=== PATIENT | male | born 1960 | race Caucasian/White ===

== ENCOUNTER 2022-02-11 17:03 | Outpatient (CLI) | payer OTHER, SELFPAY ==
[2022-02-11 14:33] LABS: Chloride* 105 mmol/L (96-114); Sodium* 138 mmol/L (135-149)
[2022-02-11 14:34] LABS: Potassium* 4.5 mmol/L (3.6-5.1)
[2022-02-11 14:36] LABS: Carbon Dioxide* 22 mmol/L (20-32); Cholesterol* 207 mg/dL (90-199); Creatinine* 0.7 mg/dL (0.5-1.5); Estimated Glomerular Filt Rate 106 ml/min
[2022-02-11 14:37] LABS: Blood Urea Nitrogen* 19 mg/dL (7-30); Calcium* 9.5 mg/dL (8.4-10.6); Glucose* 155 mg/dL (60-115); HDL Cholesterol* 38 mg/dL (>=40); LDL Cholesterol Calculated 112 mg/dL (<100); Triglycerides* 286 mg/dL (40-149)
[2022-02-11 14:49] LABS: Creatinine Urine 92.2 mg/dL
[2022-02-11 14:53] LABS: Microalbumin Creatinine Ratio 20 mg/g (0-30); Microalbumin Urine 2 mg/dL
[2022-02-11 15:06] LABS: PSA Screen* 0.61 ng/mL (0.10-4.00)
== END 2022-02-11 17:04 | disposition home or self-care (01) ==
PROVIDERS: PCP Family Medicine; Visit Provider Family Medicine
DX: Z00.00 Encounter for general adult medical examination without abnormal findings (principal); E11.9 Type 2 diabetes mellitus without complications; E78.00 Pure hypercholesterolemia, unspecified; I10 Essential (primary) hypertension; Z12.5 Encounter for screening for malignant neoplasm of prostate
CPT/HCPCS: 80048; 80061; 82043; 82570; 84153

== ENCOUNTER 2023-05-17 08:20 | Outpatient (CLI) | payer OTHER, SELFPAY ==
--- OUTSIDE RECORDS SUMMARY | 2023-05-24 12:55 | XMS_ITS | Encounter Summary ---
Author Name Department of Vetera Affairs Organization [facility] of [facility] Address [address] [place] [id number] Support Name Relationship Address Phone GALLO RONQUILLO Next of Kin [address] [place] [address] GALLO RONQUILLO Emergency Contact [address] [place] [id number] Insurance Providers: All historical and current Section Date Range: From patient's date of to the date document was created. This section includes the names of all active insurance providers for the patient. Insurance Provider Type of Coverage Plan Name Start of Policy Coverage End of Policy Coverage Group Number Member ID Insurance Provider's Telephone Number Policy Mancera's Name Patient's Relationship to Policy Mancera [facility] (WNR) MEDICAID MEDIC AID Apr 14, 2007 [id number] [phone] [facility] PATIENT Selected Encounter This section includes the information on record at [place] for the Encounter. Date/Time Encounter Type Encounter Description Reason Provider Source Dec 23, 2022 09:45 AM HEARING AID FITTING/CHECKIN G AUDIOLOGY ICD-10-CM Z46.1 Encounter for fitting and adjustment of hearing aid BJ PERALTA Rocio Encounter Template Text not used by [place] Assessments - Encounter Diagnoses This section includes the primary and secondary diagnoses documented for the Encounter. Date/Time Primary/Secondary Diagnosis Diagnosis Name Provider Source Dec 23, 2022 10:30 AM PRIMARY Encounter for fitting and adjustment of hearing aid TEA PERALTA [facility] Dec 23, 2022 10:30 AM SECONDARY Sensorineural hearing loss, bilateral TEA PERALTA [facility] Encounter Notes: All associated encounter notes This section contains the clinical notes associated to the Encounter. Date/Time Encounter Note(s) Provider Source Dec 23, 2022 10:25 AM AUDIOLOGY NOTE: LOCAL TITLE: AUDIOLOGY CLINIC NOTE STANDARD TITLE: AUDIOLOGY NOTE DATE OF NOTE: DEC 23, 2022@10:25 ENTRY DATE: DEC 23, 2022@10:25:50 AUTHOR: BJ PERALTA EXP COSIGNER: URGENCY: STATUS: COMPLETED DIAGNOSIS: Sensorineural Hearing Loss Reason for visit: Encounter for fitting adjustment Otoscopy: Free of excessive cerumen, normal anatomy bilaterally. Cerumen removal by . advised to use mineral oil until cerumen can be removed. History: Patient seen for a hearing aid service/hearing aid check. Hearing Aids (right/left): SONOVA PHONAK AUDEO L90-RL LULU L [id number] SONOVA PHONAK AUDEO L90-RL LULU R [id number] The following hearing aid problem/s were presented: RIGHT HEARING AID - clean & check, s's have a whistling sound LEFT HEARING AID - clean check, s's have a whistling sound Action: Hearing aids were cleaned and checked. Listening check revealed good sound quality Both aids functioning properly post clean & check The following parts were replaced: wax guards Adjusted the SoundRecover2 Audibility/Distinction and Clarity/Comfort Patient stated that the adjustments today addressed the s's issue. was counseled on the cleaning, care and use of hearing aids. Plan: Follow up as medically indicated or if a change in hearing is noted. Return to Clinic for servicing of amplification as needed. Return to clinic for hearing aid evaluation/services. Return to clinic for fitting of devices. Patient is in agreement with this plan. /cheng/ BJ PERALTA [facility] SPECIAL[facility] Signed: 12/23/2022 10:[address] [facility]
--- OUTSIDE RECORDS SUMMARY | 2023-05-24 12:55 | XMS_ITS | Encounter Summary ---
Author Name Department of Vetera Affairs Organization Department of Vetera Affairs Address [address] [place] [address] Support Name Relationship Address Phone GALLO RONQUILLO Next of Kin [address] [place] [address] GALLO RONQUILLO Emergency Contact [address] [place] [address] Insurance Providers: All historical and current Section Date Range: From patient's date of to the date document was created. This section includes the names of all active insurance providers for the patient. Insurance Provider Type of Coverage Plan Name Start of Policy Coverage End of Policy Coverage Group Number Member ID Insurance Provider's Telephone Number Policy Mancera's Name Patient's Relationship to Policy Mancera [facility] (WNR) MEDICAID MEDIC AID Apr 14, 2007 [id number] [phone] [facility] ED PATIENT Selected Encounter This section includes the information on record at [place] for the Encounter. Date/Time Encounter Type Encounter Description Reason Provider Source Jul 29, 2022 07:45 AM HEARING AID EXAM BOTH EARS AUDIOLOGY ICD-10-CM Z01.118 Encntr for exam of ears and hearing w oth abnormal findings MARLENI ENGLAND E Encounter Template Text not used by [place] Assessments - Encounter Diagnoses This section includes the primary and secondary diagnoses documented for the Encounter. Date/Time Primary/Secondary Diagnosis Diagnosis Name Provider Source Jul 29, 2022 09:13 AM PRIMARY Encntr for exam of ears and hearing w oth abnormal findings [facility] Jul 29, 2022 09:13 AM SECONDARY Sensorineural hearing loss, bilateral [facility] Jul 29, 2022 09:13 AM SECONDARY Tinnitus, bilateral [facility] Plan of Treatment: Future Appointments (+ 6 months) and Future Tests (+/- 45 days) The Plan of Treatment section includes future care activities for the patient from all [place] [facility]. This section includes future appointments and future orders which are active, pending or scheduled. Future Appointments This section includes appointments that were scheduled to occur 6 months from the date of the Encounter, up to a maximum of 20 appointments. The data comes from all [facility] facilities. Appointment Date/Time Appointment Type Appointme nt Facility Name September 12, 2022 08:45 AM AMBULATORY - SURGERY [facility] Nov 04, 2022 08:45 AM AMBULATORY - SURGERY [facility] Dec 23, 2022 09:45 AM AMBULATORY SURGERY [facility] Encounter Notes: All associated encounter notes This section contains the clinical notes associated to the Encounter. Date/Time Encounter Note(s) Provider Source Jul 29, 2022 07:34 AM AUDIOLOGY NOTE: LOCAL TITLE: AUDIOLOGY CLINIC NOTE STANDARD TITLE: AUDIOLOGY NOTE DATE OF NOTE: JUL 29, 2022@07:34 ENTRY DATE: JUL 29, 2022@07:34:15 AUTHOR: ISAIAH ENGLAND COSIGNER: URGENCY: STATUS: COMPLETED DIAGNOSIS: Encounter for examination of ears and hearing Sensorineural loss - bilateral Tinnitus - bilateral REASON FOR VISIT: HEARING EVALUATION AND HEARING AID SELECTION, 60 MINUTES: was seen in the clinic today for a comprehensive audiologic evaluation, hearing aid selection, and counseling utilizing a standard curriculum (30 minutes). LOCATION OF VISIT (ROOM NUMBER): 116 Personal Protective Equipment (PPE): Patient was in mask on arrival, patient remained masked for entire visit, Tower Dragline Operator used PPE during every encounter with the patient. The is new to this clinic. The is NOT Service Connected for Hearing Loss / Tinnitus. was unaccompanied. The has never worn hearing aids before. HISTORY: Chilo's history of noise exposure: The served in the [employer] from 1982 - 2008. He served in the [employer] the first 10 years, then for the remainder of the time he worked in the [employer]. 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 Chilo feels that he had equal exposure between ears; he shoots off of his right shoulder. He reports he did wear hearing protection. CIVILIAN NOISE HISTORY: There is a history of Recreational or Occupational noise exposure from: [ ] No [ X ] Yes: Construction noise, did not always wear hearing protection. He also hunts. 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 HEALTH HISTORY: Concerns reported today by Patient: [ X ] Hearing Loss, Both Ears: Gradual over the past year. He first started noticing the hearing loss at time of discharge from the in his late 30s. [ X ] Tinnitus, mostly Right Ear. Intermittent, pretty rare. It is not overly bothersome. Onset many years ago. [ X ] Family History of Hearing loss - Parents, Siblings Pt Denies: - Vertigo/Dizziness/Imbalan ce - Otorrhea - Otalgia - Aural Fullness - Head Trauma - Otosurgery Denies any significant otologic history. Veterans Reported Hearing Concerns: [ ] One-on-One Conversations [ X ] Lecture Index/Auditorium/Restorationist [ X ] Restaurants/Background Noise [ X ] Radio/Television [ X ] Group Situations [ ] Phone - uses the right ear. He uses an Vocation cell phone. [ X ] Family/Wifes voice [ X ] Workplace/Meetings [ ] Car/Driving PROCEDURES: OTOSCOPY: Bilaterally: Free of excessive cerumen. Normal appearing TM's and canals. TYMPANOMETRY: RIGHT EAR: Type A Pressure: Normal Compliance: Normal Volume: Normal LEFT EAR: Type A Pressure: Normal Compliance: Normal Volume: Normal IMMITTANCE: RIGHT EAR: 500Hz 1000Hz 2000Hz 4000Hz Ipsilateral: NR NR NR NR Contralateral: NR NR NR NR LEFT EAR: 500Hz 1000Hz 2000Hz 4000Hz Ipsilateral: 90 85 100 95 Contralateral: NR NR 100 NR ACOUSTIC REFLEX DECAY: could not obtain due to exceeding the maximum safe level of 100 dBHL and/or absent contralateral reflexes bilaterally AUDIOMETRICS: Air conduction, bone conduction and speech testing were completed bilaterally. Transducer: Supra-aural headphones Reliability: Good RIGHT EAR (Hz) 250 627 226 1402 1500 2000 3000 4000 6000 8000 Air: 25 35 30 20 45 45 55 70 100 Bone: 35* 10 25 40 55 LEFT EAR (Hz) 250 276 176 3915 1500 2000 3000 4000 6000 8000 Air: 20 30 30 20 25 45 50 65 75 Bone: 20 10 25 40 55 See Audiogram Display under Tools ?? AUDIOLOGY ?? ROES or see [facility] Database - All thresholds are in dB HL * = Masked Threshold SRT: Spondees Right: 30 dB HL Left: 25 dB HL Pure tone results were consistent with speech bookkeeper receptionist thresholds. WORD RECOGNITION: / - word list RIGHT EAR: 96% Level: 75* dB LEFT EAR: 92% Level: 75* dB SUMMARY: RIGHT EAR: Borderline normal through 2000 Hz, with sensorineural notch 500 - 750 Hz, sloping to profound sensorineural hearing loss with normal word recognition ability (96%). Tympanogram was within normal limits, consistent with normal middle ear function. LEFT EAR: Borderline normal through 2000 Hz, with sensorineural notch 500 - 750 Hz, sloping to severe sensorineural hearing loss with normal word recognition ability (92%). Tympanogram was within normal limits, consistent with normal middle ear function. AMPLIFICATION: - Chilo is a good candidate for hearing aid use. - was counseled on his type, degree and configuration of hearing loss using a standard curriculum. - The 's hearing loss has progressed currently to the extent that it affects full participation in the provision of health care as noted today in our discussions. Hearing aids are medically indicated to treat the 's auditory conditions. - Different styles/technologies were reviewed with consideration given to veterans listening situations and lifestyle needs. He reports that he often travels and does tend to sweat a lot. He would like rechargable RICs. - The has good vision, memory, and dexterity for hearing aid use. Counseling (30 minutes) - Chilo counseled using a standard curriculum on realistic expectations associated with adjusting to hearing aids, use of the devices, VA procedures and trial period. - counseled using a standard curriculum on effective communication strategies such as maintaining face to face contact when speaking, eliminating background noise when possible, and talking at a close distance. - counseled using a standard curriculum on hearing protection in noise. - Chilo has a [employer] smartphone and is interested in the bluetooth connectivity features of the hearing aid. HEARING AIDS ORDERED: - PHONAK WattageEO L90-LR LULU hearing aids (champagne, Size 2M receivers, mediume vented domes) were selected and ordered today. - Accessories ordered: none ( has [employer] smartphone) PLAN: 1. will be scheduled for a 60-minute hearing aid fitting appointment. 2. Regular follow-up recommended to monitor for changes in hearing, or as medically indicated. IS IN AGREEMENT WITH THIS PLAN Suicide Screen: C-SSRS Screening [place]-Suicide Severity Rating Scale (C-SSRS Screener) 1. Over the past month, have you wished you were or wished you could go to sleep and not wake up? No 2. Over the past month, have you had any actual thoughts of killing yourself? No 3. Over the past month, have you been thinking about how you might do this? Response not required due to responses to other questions. 4. Over the past month, have you had these thoughts and had some intention of acting on them? Response not required due to responses to other questions. 5. Over the past month, have you started to work out or worked out the details of how to kill yourself? Response not required due to responses to other questions. 6. If yes, at any time in the past month did you intend to carry out this plan? Response not required due to responses to other questions. 7. In your lifetime, have you ever done anything, started to do anything, or prepared to do anything to end your life (for example, collected pills, obtained a gun, gave away valuables, went to the roof but didn't jump)? No 8. If YES, was this within the past 3 months? Response not required due to responses to other questions. /cheng/ Sumanth VELA, CCC-A MAIL DELIVERER Signed: 07/29/2022 09:13 [facility]
--- OUTSIDE RECORDS SUMMARY | 2023-05-24 12:55 | XMS_ITS | Encounter Summary ---
Author Name [facility] Organization [facility] Address [address] [place] [address] Support Name Relationship Address Phone GALLO RONQUILLO Next of Kin [address] [place] [address] GALLO RONQUILLO Emergency Contact [address] [...] Mancera's Name Patient's Relationship to Policy Mancera [facility] (WNR) MEDICAID MEDIC AID Apr 14, 2007 [id number] [phone] [facility] ED PATIENT Selected Encounter This section includes the information on record at [place] for the Encounter. Date/Time Encounter Type Encounter Description Reason Provider Source September 12, 2022 08:45 AM CONFORMITY EVALUATION AUDIOLOGY ICD-10-CM Z46.1 Encounter for fitting and adjustment of hearing aid MARLENI ENGLAND [facility] Encounter Template Text not used by [place] Assessments - Encounter Diagnoses This section includes the primary and secondary diagnoses documented for the Encounter. Date/Time Primary/Secondary Diagnosis Diagnosis Name Provider Source September 12, 2022 10:24 AM PRIMARY Encounter for fitting and adjustment of hearing aid [facility] September 12, 2022 10:24 AM SECONDARY Sensorineural hearing loss, bilateral [facility] September 12, 2022 10:24 AM SECONDARY Tinnitus, bilateral [facility] Plan of Treatment: Future Appointments (+ 6 months) and Future Tests (+/- 45 days) The Plan of Treatment section includes future care activities for the patient from all [place] [facility]. This section includes future appointments and future orders which are active, pending or scheduled. Future Appointments This section includes appointments that were scheduled to occur 6 months from the date of the Encounter, up to a maximum of 20 appointments. The data comes from all [facility]. Appointment Date/Time Appointment Type Appointme nt Facility Name Nov 04, 2022 08:45 AM AMBULATORY - SURGERY [facility] Dec 23, 2022 09:45 AM AMBULATORY - SURGERY [facility] Encounter Notes: All associated encounter notes This section contains the clinical notes associated to the Encounter. Date/Time Encounter Note(s) Provider Source September 12, 2022 07:42 AM AUDIOLOGY NOTE: LOCAL TITLE: AUDIOLOGY CLINIC NOTE STANDARD TITLE: AUDIOLOGY NOTE DATE OF NOTE: SEPTEMBER 12, 2022@07:42 ENTRY DATE: SEPTEMBER 12, 2022@07:42:48 AUTHOR: ISAIAH ENGLAND COSIGNER: URGENCY: STATUS: COMPLETED DIAGNOSIS: Encounter for Fitting and Adjustment of Hearing Aid Sensorineural loss - bilateral Tinnitus - bilateral REASON FOR VISIT: was seen for Hearing Aid [place] Appointment. Therapeutic - hearing aid fitting, conformity evaluation (real-ear measures), orientation and counseling using a standard curriculum (30 minutes). LOCATION OF VISIT (ROOM NUMBER): 118 Kitt[place]ge was unaccompanied. Personal Protective Equipment (PPE): Patient was in mask on arrival, patient remained masked for entire visit, Machine Stone Polisher Apprentice used PPE during every encounter with the patient. OTOSCOPY: Both Ears: Free of excessive cerumen. Normal anatomy bilaterally HISTORY: Kittredge denies changes in hearing or new otologic symptoms since their last visit to the clinic. has never used hearing aids previously. HEARING AIDS (Right/Left) fit (date): 09/12/2022 BINAURAL: PHONAK AUDEO L90-RL (#[id number]) Receivers: 2M Dome: Medium Vented and/or Medium Open ACCESSORIES: none ACTION + CONFORMITY EVAUATION (VERIFICATION OF HEARING AID FUNCTION): Hearing aids are a good physical fit to pt's ears. Feedback test was completed and feedback carbon capture power plant manager was activated. No feedback was noted from either aid, even with head/jaw movement or with objects near the ears. Hearing aids were programmed to NAL-NL2 prescriptive targets with the AudioScan Verifit, which were derived from the Veterans hearing loss. However, felt the sound quality was overall too loud. Decreased gain to 90% of the target, and then decreased gain further by turning the occlusion Scientific Research Associate to Medium. still was experiencing bothersome occlusion which improved when replaced the vented domes with open domes. According to the NAL-NL2 fitting method, the patient's hearing aids are below target for soft, average, and loud speech. Loudness tolerance was measured using a 90 dB MPO tone sweep and the patient was able to tolerate the output of the hearing devices. Veterans subjective impressions were considered while adjusting the hearing aids. reported good sound quality and equal balance between ears after adjustments were made. Kittredge reported a comfortable fit. Kittredge demonstrated understanding of the new aids and was able to insert the hearing aids appropriately, as well as manipulate the battery charging unit. Volume control enabled - Synchronized Program button enabled Programs are as follows: 1. Automatic Kitt[place] was provided with both vented and open domes to try. [employer] cell phone was paired to the hearing aids. A practice phone call was completed to verify functionality. Education and counseling was completed regarding streaming capabilities. The wire basket maker phone application was reviewed in detail (volume control, program changes, settings, etc.) and demonstrated in the office. Provided pt with the wire basket maker technical support phone number. was counseled using a standard curriculum (30 minutes) regarding: - Full-time hearing aid use and acclimating to amplification - Realistic expectations for hearing aid use - Appropriate communication strategies - How to charge the hearing aids - Location and operation of all controls - Proper care and maintenance - Protecting hearing in high noise levels - [facility] and Call Center contact information and services, including the trial period. Kittredge was counseled on the following: -Full-time hearing aid use and acclimating to amplification -Realistic expectations for hearing aid use -Appropriate communication strategies -Battery insertion and removal -Location and operation of all controls -Proper care and maintenance -Protecting hearing in high noise levels -[facility] and Call Center contact information and services, including the trial period and Quick Clinic hours Prognosis for success is good, given the Veterans response to the hearing aids. Hearing aids were issued and batteries and supplies were mailed. was provided with a copy of [place] issuance form [id number]. PLAN: 1) Kittredge will return to clinic in 1 month for follow-up to his amplification needs. He will hopefully be ready for additional gain at that time. CATA IS IN AGREEMENT WITH THIS PLAN /cheng/ Sumanth VELA, SHANA-A FAMILY INDEPENDENCE CASE MANAGER Signed: 09/12/2022 10:32 ISAIAH ENGLAND [facility]
--- OUTSIDE RECORDS SUMMARY | 2023-05-24 12:55 | XMS_ITS | Continuity of Care Document ---
Author Name [facility] Organization [facility] Care Team Providers Care Axle Inspector Name Role Phone [facility] Unavailable Unavailable Problems Combined list of problems from Department of Defense and Veterans Affairs facilities. It does not include entries that were removed or entered in error. Problem Status Onset Date Problem Type Date of Resolution Comments Source Diagnosis: ICD-10-CM Z46.1 Encounter for fitting and adjustment of hearing aid Active Diagnosis [facility] Diagnosis: ICD-10-CM Z01.118 Encntr for exam of ears and hearing w oth abnormal findings Active Diagnosis [facility] Encounters Combined list of: 1) Encounters from Department of Veterans Affairs facilities going back up to thelast 18 months. 2) Encounters from the Department of Defense facilities going back up to 280 months. Location Location Details Encounter Type Encounter Number Reason For Visit Attending Provider ADM Date DC Date Status Disposition Source [facility] HEARING AID EXAM BOTH EARS [id number] Diagnos is: ICD-10- CM Z01.118 Encntr for exam of ears and hearing w oth abnorma l finding s
MARIA GUADALUPE ENGLAND 07/29 [facility] CONFORMITY EVALUATION [id number] Diagnos is: ICD-10- CM Z46.1 Encount er for fitting and adjustm ent of hearing aid<br/ > MARIA GUADALUPE ENGLAND 09/12 [facility] [place] [facility] HEARING AID FITTING/CH ECKING [id number] [id number] Diagnos is: ICD-10- CM Z46.1 Encount er for fitting and adjustm ent of hearing aid<br/ > LYNN PERALTA 11/04 [facility] [place] [facility] HEARING AID FITTING/CH ECKING [id number] [id number] Diagnos is: ICD-10- CM Z46.1 Encount er for fitting and adjustm ent of hearing aid<br/ > [facility]YNN PER[facility]TA 12[facility]23 [facility] Social History Combined list of available smoking, tobacco, and other social history from Department of Defense and Veterans Affairs facilities. Social History Type Response Date Comment [facility] e This section is an empty social history section. [employer]
--- OUTSIDE RECORDS SUMMARY | 2023-05-24 12:55 | XMS_ITS | Encounter Summary ---
Author Name [facility] Organization [facility] Address [address] [place] [address] Support Name Relationship Address Phone GALLO RONQUILLO Next of Kin [address] [place] [address] GALLO RONQUILLO Emergency Contact [phone] Mancera's Name Patient's Relationship to Policy Mancera [facility] (WNR) MEDICAID MEDIC AID Apr 14, 2007 [id number] [phone] [facility] ED PATIENT Selected Encounter This section includes the information on record at [place] for the Encounter. Date/Time Encounter Type Encounter Description Reason Provider Source Nov 04, 2022 08:45 AM HEARING AID FITTING/CHECKIN G AUDIOLOGY ICD-10-CM Z46.1 Encounter for fitting and adjustment of hearing aid BJ PERALTA Rocio Encounter Template Text not used by [place] Assessments - Encounter Diagnoses This section includes the primary and secondary diagnoses documented for the Encounter. Date/Time Primary/Secondary Diagnosis Diagnosis Name Provider Source Nov 04, 2022 09:50 AM PRIMARY Encounter for fitting and adjustment of hearing aid TEA PERALTA [facility] Nov 04, 2022 09:50 AM SECONDARY Sensorineural hearing loss, bilateral TEA PERALTA [facility] Plan of Treatment: Future Appointments (+ 6 months) and Future Tests (+/- 45 days) The Plan of Treatment section includes future care activities for the patient from all [place] treatmentfacilities. This section includes future appointments and future orders which are active, pending or scheduled. Future Appointments This section includes appointments that were scheduled to occur 6 months from the date of the Encounter, up to a maximum of 20 appointments. The data comes from all [place] treatment facilities. Appointment Date/Time Appointment Type Appointme nt Facility Name Dec 23, 2022 09:45 AM AMBULATORY - SURGERY [facility] Encounter Notes: All associated encounter notes This section contains the clinical notes associated to the Encounter. Date/Time Encounter Note(s) Provider Source Nov 04, 2022 09:25 AM AUDIOLOGY NOTE: LOCAL TITLE: AUDIOLOGY CLINIC NOTE STANDARD TITLE: AUDIOLOGY NOTE DATE OF NOTE: NOV 04, 2022@09:25 ENTRY DATE: NOV 04, 2022@09:25:25 AUTHOR: BJ PERALTA EXP COSIGNER: URGENCY: STATUS: COMPLETED DIAGNOSIS: Sensorineural Hearing Loss Reason for visit: Encounter for fitting adjustment Otoscopy: Free of excessive cerumen, normal anatomy bilaterally. History: Patient seen for a hearing aid service/hearing aid check. Hearing Aids (right/left): SONOVA PHONAK AUDEO L90-RL LULU R [id number] SONOVA PHONAK AUDEO L90-RL LULU L [id number] The following hearing aid problem/s were presented: RIGHT HEARING AID - clean & check LEFT HEARING AID - clean & check Action: Hearing aids were cleaned and checked. Listening check revealed good sound quality Both aids functioning properly post clean & check The following parts were replaced: wax guards [place] was counseled on the cleaning, care and use of hearing aids. Plan: Follow up as medically indicated or if a change in hearing is noted. Return to Clinic for servicing of amplification as needed. Return to clinic for hearing aid evaluation/services. Return to clinic for fitting of devices. Patient is in agreement with this plan. /cheng/ BJ PERALTA [facility] SEWING MACHINE TESTER Signed: 11/04/2022 09:50 BJ PERALTA [facility]
== END 2023-05-17 08:21 | disposition home or self-care (01) ==
LOC: NFLDREF 05-24 12:50
PROVIDERS: PCP Family Medicine; Referring Provider Family Medicine; Visit Provider Family Medicine
DX: E11.9 Type 2 diabetes mellitus without complications (principal); Z12.5 Encounter for screening for malignant neoplasm of prostate; Z13.6 Encounter for screening for cardiovascular disorders
CPT/HCPCS: 80053; 80061; 82043; 82570; G0103

== ENCOUNTER 2023-12-15 08:41 | Outpatient (CLI) | payer OTHER, SELFPAY ==
--- OUTSIDE RECORDS SUMMARY | 2023-12-18 08:25 | XMS_ITS | Continuity of Care Document ---
Author Name [facility] Organization [facility] Care Team Providers Care Resourcing Advisor Name Role Phone [facility] Unavailable Unavailable Problems Combined list of problems from Department of [facility] facilities. It does not include entries that were removed or entered in error. Problem Status Onset Date Problem Type Date of Resolution Comments Source Diagnosis: ICD-10-CM G47.39 Other sleep apnea Active Diagnosis [facility] Diagnosis: ICD-10-CM Z46.1 Encounter for fitting and adjustment of hearing aid Active Diagnosis [facility] Diagnosis: ICD-10-CM Z01.118 Encntr for exam of ears and hearing w oth abnormal findings Active Diagnosis [facility] Immunizations Combined list of available immunizations from the Department of [facility] and [facility] facilities. Immunization Series Date Given Administered By Site Reaction Lot Number CVX Code Drug Architectural Project Manager Status Comments Source TDAP 2012 115 complet ed [facility] Vital Signs Combined list of inpatient and outpatient Vital Signs from [facility], ranging from 12 months to all on record, depending upon the facility. Vital Sign Value Date Comments Source Encounters Combined list of: 1) Encounters from [facility] of [facility] facilities going back up to thelast 18 months. 2) Encounters from the Department of [facility] facilities going back up to 280 months. Location Location Details Encounter Type Encounter Number Reason For Visit Attending Provider ADM Date DC Date Status Disposition Source [facility] HEARING AID EXAM BOTH EARS [id number] Diagnos is: ICD-10- CM Z01.118 Encntr for exam of ears and hearing w oth abnorma l finding s
MARIA GUADALUPE ENGLAND 07/29 [facility] CONFORMITY EVALUATION [id number] Diagnos is: ICD-10- CM Z46.1 Encount er for fitting and adjustm ent of hearing aid<br/ > MARIA GUADALUPE ENGLAND 09/12 [facility] [place]SSA IS [facility] HEARING AID FITTING/CH ECKING [id number] Diagnos is: ICD-10- CM Z46.1 Encount er for fitting and adjustm ent of hearing aid<br/ > LYNN PERALTA HAEL H 11/04 [facility] [place] IS [facility] HEARING AID FITTING/CH ECKING [id number] Diagnos is: ICD-10- CM Z46.1 Encount er for fitting and adjustm ent of hearing aid<br/ > LYNN PERALTA HAEL H 12/23 [facility] [place] IS [facility] OFFICE O/P EST LOW 20 MIN [id number] Diagnos is: ICD-10- CM G47.39 Other sleep apnea<b r/> FARZAD ALEXANDER A 11/02 [facility] [place] IS [facility] Outpatient Encounter [id number] 11/02 [facility] Social History Combined list of available smoking, tobacco, and other social history from Department of Defense and Veterans Affairs facilities. Social History Type Response Date Comment Sourc e Tobacco smoking status [facility] NEVER USED 11/03/2023 [facility] This section is an empty social history section. [facility] Plan of Care List of future care activities from Department of Veterans Affairs facilities. Additional future care activities may be listed in the Assessment and Plan section. Date/Time Care Activity Care Activity Detail Facili ty 02/02/2024 AMBULATORY - MEDICINE AMBULATORY - MEDICI NE [facility] 11/03/2023 Consult Order SLEEP [facility] IC OUTPT Cons Occupational Medicine Officer's Choice [facility]
== END 2023-12-15 08:42 | disposition home or self-care (01) ==
LOC: NFLDREF 12-18 08:23
PROVIDERS: PCP Family Medicine; Referring Provider Family Medicine; Visit Provider Family Medicine
DX: E78.00 Pure hypercholesterolemia, unspecified (principal); E11.9 Type 2 diabetes mellitus without complications
CPT/HCPCS: 80053; 80061

== ENCOUNTER 2024-03-22 08:00 | Outpatient (CLI) | payer OTHER, SELFPAY ==
--- OUTSIDE RECORDS SUMMARY | 2024-03-23 19:05 | XMS_ITS | Continuity of Care Document ---
Author Name [facility] Organization [facility] Care Team Providers Care Supervisor Curing Room Name Role Phone [facility] Unavailable Unavailable Problems Combined list of problems from Department of Defense and Veterans Affairs facilities. It does not include entries that were removed or entered in error. Problem Status Onset Date Problem Type Date of Resolution Comments Source Obstructive sleep apnea of adult Active Condition [facility] Diagnosis: ICD-10-CM G47.33 Obstructive sleep apnea (adult) (pediatric) Active Diagnosis [facility] Diagnosis: ICD-10-CM G47.39 Other sleep apnea Active Diagnosis [facility] Diagnosis: ICD-10-CM Z46.1 Encounter for fitting and adjustment of hearing aid Active Diagnosis [facility] Immunizations Combined list of available immunizations from the Department of Defense and Veterans Affairs facilities. Immunization Series Date Given Administered By Site Reaction Lot Number CVX Code Drug Livestock Nutritionist Status Comments Source TDAP 2012 115 complet ed [facility] Vital Signs Combined list of inpatient and outpatient Vital Signs from Department of Defense and Veterans Affairs, ranging from 12 months to all on record, depending upon the facility. Vital Sign Value Date Comments Source SYSTOLIC BLOOD PRESSURE 157 11/03/2023 14:52:53 [facility] DIASTOLIC BLOOD PRESSURE 87 11/03/2023 14:52:53 [facility] PULSE OXIMETRY 94 11/03/2023 14:52:53 [facility] 242.3 11/03/2023 14:52:53 [facility] BMI 36kg/m2 11/03/2023 14:52:53 [facility] PAIN 0 11/03/2023 14:52:53 [facility] HEIGHT 69 11/03/2023 14:52:53 [facility] TEMPERATURE 97.5 11/03/2023 14:52:53 [facility] PULSE 84 11/03/2023 14:52:53 [facility] RESPIRATION 16 11/03/2023 14:52:53 [place] [facility] Encounters Combined list of: 1) Encounters from Department of Veterans Affairs facilities going back up to thelast 18 months. 2) Encounters from the Department of Defense facilities going back up to 280 months. Location Location Details Encounter Type Encounter Number Reason For Visit Attending Provider ADM Date DC Date Status Disposition Source [place] IS [facility] HEARING AID FITTING/CH ECKING [id number] Diagnos is: ICD-10- CM Z46.1 Encount er for fitting and adjustm ent of hearing aid<br/ > LYNN PERALTA HAEL H 11/04 [facility] [place] IS [facility] HEARING AID FITTING/CH ECKING [id number] Diagnos is: ICD-10- CM Z46.1 Encount er for fitting and adjustm ent of hearing aid<br/ > LYNN PERALTA HAEL H 12/23 [facility] O[facility]P EST LOW 20 MIN [id number] Diagnos is: ICD-10- CM G47.39 Other sleep apnea<b r/> FARZAD ALEXANDER A 11/02 [facility] [place] IS [facility] Outpatient Encounter [id number] 11/02 [facility] IS [facility] PT EDUCATION NOC INDIVID [id number] Diagnos is: ICD-10- CM G47.33 Obstruc tive sleep apnea (adult) (pediat sujey)
JIMMIE FONTANZE 02/01 [facility] Social History Combined list of available smoking, tobacco, and other social history from Department of Defense and Veterans Affairs facilities. Social History Type Response Date Comment Sourc e Tobacco smoking status [facility] NEVER USED 11/03/2023 [facility] This section is an empty social history section. [employer]
== END 2024-03-22 08:01 | disposition home or self-care (01) ==
LOC: NFLDREF 03-23 19:03
PROVIDERS: PCP Family Medicine; Referring Provider Family Medicine; Visit Provider Family Medicine
DX: I10 Essential (primary) hypertension (principal); E11.9 Type 2 diabetes mellitus without complications; E78.1 Pure hyperglyceridemia
CPT/HCPCS: 80053; 80061

== ENCOUNTER 2025-02-13 13:51 | Outpatient (CLI) | payer OTHER, SELFPAY | END 2025-02-13 13:52 | disposition home or self-care (01) | PROVIDERS: PCP Family Medicine; Visit Provider Family Medicine | DX: R19.7 Diarrhea, unspecified (principal); I10 Essential (primary) hypertension; R19.5 Other fecal abnormalities | CPT/HCPCS: 80053 ==

== ENCOUNTER 2025-02-20 14:36 | Outpatient (CLI) | payer OTHER, SELFPAY ==
--- NOTE | 2025-02-20 15:00 | CRLHL7_ITS ---
For Patients: As a result of the Century Cures Act, medical imaging exams and procedure reports are released immediately into your electronic medical record. You may view this report before your referring provider. If you have questions, please contact your health care provider. INDICATION: Right-sided abdominal pain for 1 month. TECHNIQUE: CT abdomen and pelvis acquired with 115 mL Isovue 370 IV contrast. COMPARISON: None. FINDINGS: Liver: Diffuse hepatic steatosis. Gallbladder and bile ducts: Unremarkable. Pancreas: Unremarkable. Spleen: Unremarkable. Adrenal glands: Unremarkable. Kidneys: Kidneys enhance symmetrically, without hydronephrosis. Retroperitoneum: No lymphadenopathy. Bowel and mesentery: Bowel is not obstructed. No significant ascites. Normal appendix. Multiple loops of fluid-filled nondilated small bowel in the lower abdomen. Bladder: Unremarkable for degree of distention. Reproductive organs: No prostatomegaly. Pelvic lymph nodes: No lymphadenopathy. Vessels: Atherosclerotic calcifications. Abdominal wall: No acute abdominal wall abnormality. Small ventral abdominal wall hernia containing fat and small amount of fluid. Bones: Multilevel degenerative changes of the spine. Bones are osteopenic. Lower chest: No focal consolidation. IMPRESSION: 1. Diffuse hepatic steatosis. 2. Multiple loops of fluid-filled nondilated small bowel in the lower abdomen, nonspecific, may reflect enteritis. 3. Small ventral abdominal wall hernia containing fat and small amount of fluid. Please note that all CT scans at this facility use dose modulation, iterative reconstruction, and/or weight-based dosing when appropriate to reduce radiation dose to as low as reasonably achievable. Dictated by Izaiah García MD @ 02/20/2025 8:31:51 PM (Electronically Signed)
== END 2025-02-20 14:37 | disposition home or self-care (01) ==
LOC: CT 14:36
PROVIDERS: PCP Family Medicine; Visit Provider Family Medicine
DX: R10.9 Unspecified abdominal pain (principal); K76.0 Fatty (change of) liver, not elsewhere classified; K43.9 Ventral hernia without obstruction or gangrene; R19.5 Other fecal abnormalities
CPT/HCPCS: 74177; Q9967

== ENCOUNTER 2025-04-16 11:37 | Outpatient (CLI) | payer OTHER, SELFPAY | END 2025-04-16 11:38 | disposition home or self-care (01) | LOC: NFLDREF 04-17 14:29 | PROVIDERS: PCP Family Medicine; Referring Provider Family Medicine; Visit Provider Family Medicine | DX: E11.9 Type 2 diabetes mellitus without complications (principal); I10 Essential (primary) hypertension; R19.5 Other fecal abnormalities | CPT/HCPCS: 83630; 87045; 87046; 87177; 87209; 87427; 87493; 87505 ==